=== PATIENT | female | born 1945 | race Caucasian/White ===

== ENCOUNTER 2017-10-31 18:01 | Emergency (ER) | payer BC, MEDICARE ==
[2017-10-31 19:01] LABS: #Basophils 0.1 thou/uL (0.0-0.2); #Lymphocytes 2.9 thou/uL (1.20-3.40); #Monocytes 0.4 thou/uL (0.11-0.59); #Neutrophils 9.9 thou/uL (1.40-6.50); %Basophils 0.7 % (0.0-1.0); %Eosinophils 0.1 % (0.0-10.0); %Lymphocytes 21.6 % (21.0-51.0); %Monocytes 3.3 % (0.0-10.0); %Neutrophils 74.3 % (42.0-75.0); Hemoglobin 14.5 g/dL (12.0-16.0); Mean Corpuscular HGB CONC 31.8 g/dL (32.0-36.0); Mean Corpuscular Hemoglobin 29.5 pg (27.0-31.0); Mean Corpuscular Volume 92.6 fl (81.0-99.0); Mean Platelet Volume 6.9 fL (7.4-10.4); Platelet Count 427 thou/uL (130-400); RBC Distribution Width 12.7 % (11.5-14.5); Red Blood Cell (RBC) Count 4.93 mill/uL (4.20-5.40); White Blood Cell (WBC) Count 13.3 thou/uL (4.8-10.8)
[2017-10-31] MEDS ORDERED: Benzonatate 100 MG CAP ONE (19:10)
[2017-10-31] MEDS ORDERED: Amoxicillin/Potassium Clav 875 MG TAB ONE (19:10)
[2017-10-31] MEDS ORDERED: methylPREDNISolone Sod Succ/PF 125 MG/2 ML VIAL ONE (19:10)
--- NOTE | 2017-10-31 19:59 | RAD ---
CHEST TWO VIEWS: Date: 10-31-17 FINDINGS: The heart is normal in size. There are no lobar consolidations or effusions, however, there is a marianne le increased streaking in the left base. I cannot exclude an early infiltrate here. The upper lobes a re clear. There are no congestive changes. IMPRESSION: Question of slight left basilar streaking. POS: HOME
== END 2017-10-31 19:35 | disposition home or self-care (01) ==
LOC: BURERS 18:01
DX: J20.9 Acute bronchitis, unspecified (principal); J01.90 Acute sinusitis, unspecified; M19.90 Unspecified osteoarthritis, unspecified site; I10 Essential (primary) hypertension; F32.9 Major depressive disorder, single episode, unspecified; Z79.82 Long term (current) use of aspirin; Z79.899 Other long term (current) drug therapy
CPT/HCPCS: 71020; 85025; 96372; J2930

== ENCOUNTER 2025-10-25 14:47 | Emergency (ER) | payer OTHER ==
[2025-10-25] MEDS ORDERED: Ketorolac Tromethamine 30 MG (1 mL) VIAL ONE (16:17)
[2025-10-25] MEDS ORDERED: Orphenadrine Citrate 60 MG/2 ML VIAL ONE (16:17)
== END 2025-10-25 16:41 | disposition home or self-care (01) ==
LOC: BURERS 14:47
DX: M25.511 Pain in right shoulder (principal); I10 Essential (primary) hypertension; F17.210 Nicotine dependence, cigarettes, uncomplicated; W19.XXXA Unspecified fall, initial encounter
CPT/HCPCS: 96372; 99283; J1885; J2360